=== PATIENT | male | born 1985 | race African-American/Black ===

== ENCOUNTER 2018-01-12 10:46 | Emergency (ER) | payer OTHER ==
[~2018-01-12] VITALS: Ht 175.3 cm; Wt 70.3 kg
[2018-01-12] MEDS ORDERED: ONDANSETRON HCL4 M2 PO (11:43)
[2018-01-12 12:11] VITALS: BP 110/63
== END 2018-01-12 12:16 | disposition home or self-care (01) ==
LOC: ER 10:46
DX: S06.0X0A Concussion without loss of consciousness, initial encounter (principal); F17.210 Nicotine dependence, cigarettes, uncomplicated; Y00.XXXA Assault by blunt object, initial encounter; Y93.89 Activity, other specified; Y92.89 Other specified places as the place of occurrence of the external cause; Y99.8 Other external cause status